=== PATIENT | female | born 1980 | race Caucasian/White ===

== ENCOUNTER → 2018-02-25 17:05 | Outpatient (CLI) | payer OTHER, SELFPAY ==
[2015-03-13 10:46] VITALS: BMI 36.0
--- OUTSIDE RECORDS SUMMARY | 2018-05-02 12:15 | XMS RPT_ITS ---
:1980 Author Organization [facility] Care Team Providers Name Role Phone Cj Lord Attending Unavailable Cj Lord Referring Unavailable NORMA WADE Primary Care Unavailable Paige Fontana Attending Unavailable NORMA WADE Referring Unavailable PROBLEMS PROBLEMS No Problem Records FoundPROCEDURES PROCEDURES No Procedure Records FoundRESULTS RESULTS Observed: 02/25/2018 Status: F Source: [place] CULTURE, THROAT 4:40 PM [facility] REPOSITORY Culture, Throat #1 Ampicillin can be used for Beta-Lactamase negative isolates. Trimeth/Sulfa, Chloramphenicol, Cefotaxime, Ciprofloxacin, Amoxicillin/Clavulanic Acid,and Oral 2nd/3rd Generation Cephlosporins are effective against both Beta-Lactamase positive and Beta-Lactamase negative isolates. ORGANISM 1: Haemophilus influenzae Amount Growth 3+ Beta Lactamase Negative ORGANISM 2: Mixed Kaylie Amount Growth 3+ Performed By: #### M100.1000 #### [facility] [address] [place], [address] ALLERGIES ALLERGIES DATE TYPE / CODE NAME / CODE REACTION SEVERITY SOURCE 03/06/2015 Drug No Known Unknown [facility] Allergy/4160 Allergies/F00 [facility] [address](SNOMED [id number](RXNOR Repository CT) M) ENCOUNTERS ENCOUNTERS ADMIT/DISCHARGE ACCOUNT ADMITTING ENCOUNTER LOCATION SOURCE NUMBER CLASS 02/25/2018 [id number] [facility] 11/11/2017/ [id number] Ambulatory BMSBuilding:[facility]dulkad[facility] [address] Repository PAYERS PAYERS ENCOUNTER GUARANTOR PAYER SUBSCRIBER SOURCE 02/25/2018 MYRTLE DE LA [id number] Primary Insurance:MED [facility] TPAPoly YODERDOB: [place], [place] Number: [id number] [id number]: [phone] [id number] Repository [phone]) Date:[id number] [address] [address]DR: CHECK WEBSITE 02/25/2018 Secondary NOT GIVENUNK [place] Insurance:SELF PAY [facility] Number: Effective Repository Date:2018-02-25 11/11/2017 MYRTLE DE LA [id number] Primary NOT GIVENUNK [facility] Insurance:SELF PAY [facility] [id number]: [phone] Number: Effective Repository [phone] (HP) Date:2017-11-11
== END ==
PROVIDERS: Family Provider Specialist; PCP Specialist; Referring Provider Otolaryngology; Visit Provider Otolaryngology
DX: J02.9 Acute pharyngitis, unspecified (principal)
CPT/HCPCS: 87070; 87077

== ENCOUNTER → 2018-04-15 08:15 | Outpatient (CLI) | payer OTHER, SELFPAY ==
--- NOTE | 2018-04-15 08:18 | RAD_ITS ---
STUDY: X-RAY - ESOPHAGUS (BARIUM SWALLOW) WITH FLUOROSCOPY REASON FOR EXAM: Female, 37 years old. Dysphagia. TECHNIQUE: 17 view(s) of the esophagus were obtained following swallowing of barium. FLUOROSCOPY TIME (if supplied): (0:25) minutes/seconds COMPARISON: None. FINDINGS: There is no demonstrated esophageal foreign body. There is no demonstrated stricture or mucosal abnormality. Normal gastroesophageal junction, without a demonstrated hiatal hernia. The patient ingested a 12 mm tablet of barium without any difficulty. Normal visualized aortic arch and descending thoracic aorta. Normal visualized pulmonary parenchyma. Normal visualized osseous structures of the thorax. RAD/Esophagus Only IMPRESSION: Normal plain film x-ray examination (barium swallow) of the esophagus. Electronically Signed: Piter Tyler, at 15:40 EST , Service support ,
== END ==
PROVIDERS: Family Provider Family Medicine; PCP Family Medicine; Referring Provider Otolaryngology; Visit Provider Otolaryngology
DX: R13.10 Dysphagia, unspecified (principal)
CPT/HCPCS: 74220